=== PATIENT | male | born 1955 | race Caucasian/White ===

== ENCOUNTER 2016-09-01 17:10 | Emergency (ER) | payer OTHER ==
[2016-09-01 17:21] VITALS: RESP 16
--- NOTE | 2016-09-01 17:37 | EDPHY ---
H & P Stated Complaint: Lac on forehead Time Seen by Provider: 09/01/16 17:30 HPI/ROS: Chief Complaint: Forehead laceration HPI: The patient presents to the ED after he sustained a laceration to his forehead while playing tennis. The patient did not lose consciousness. The patient reports his tetanus shot is up-to-date. The patient denies any complaints of acute pain. REVIEW OF SYSTEMS: Neuro: no headache, numbness, weakness Musculoskeletal: as above Skin: As above Source: Patient Exam Limitations: No limitations - Personal History Current Tetanus/Diphtheria Vaccine: Unsure Current Tetanus Diphtheria and Acellular Pertussis (TDAP): Unsure - Medical/Surgical History Hx Asthma: No Hx Chronic Respiratory Disease: No Hx Diabetes: No Hx Cardiac Disease: No Hx Renal Disease: No Hx Cirrhosis: No Hx Alcoholism: No Hx HIV/AIDS: No Hx Splenectomy or Spleen Trauma: No Other PMH: High metabolism - Social History Smoking Status: Never smoked - Physical Exam Exam: General Appearance: Alert, no distress Head: 3 cm linear laceration on forehead Eyes: Pupils equal, round, reactive ENT, Mouth: No hemotympanum, no oral trauma Neck: Nontender, trachea midline Constitutional: Initial Vital Signs Temperature (C) 36.4 C 09/01/16 17:20 Heart Rate 72 09/01/16 17:20 Respiratory Rate 16 09/01/16 17:20 Blood Pressure 129/88 H 09/01/16 17:20 O2 Sat (%) 94 09/01/16 17:20 O2 Delivery Mode Room Air Allergies/Adverse Reactions: Penicillins Allergy (Verified 09/26/14 22:15) pentoxifylline [From Trental] Allergy (Verified 09/01/16 17:21) Home Medications: Medication Instructions Recorded Codeine Sulfate [CODEINE SULFATE] 30 - 60 mg PO BID PRN 09/10/14 Diltiazem Cd [Cardizem ER Q24hr] 120 mg PO DAILY #30 cap 09/11/14 Famotidine [Pepcid] 20 mg PO BID #15 tab 09/26/14 diphenhydrAMINE [Benadryl] 25 mg PO Q6 #15 tab 09/26/14 predniSONE [Prednisone] 20 mg PO DAILY #15 tablet 09/26/14 Medical Decision Making Procedures: Procedure: Laceration repair. Verbal consent was obtained from the patient. The a 3 cm laceration on the forehead was anesthetized using lidocaine with epinephrine. The wound was scrubbed, draped and explored to its base with a gloved finger. There were no deep structures involved. The wound was repaired with [phone]) 6-0 Ethilon sutures. The wound repair was simple. The procedure was performed by myself. Departure - Departure Disposition: Home, Routine, Self-Care Clinical Impression: Forehead laceration Condition: Good Instructions: Facial Laceration (ED) Additional Instructions: 1. Return to the emergency department in 5 days for suture removal. 2. Apply antibiotic ointment to suture line twice daily for next 5 days. Referrals: NONE *PRIMARY CARE P,. [Primary Care Provider] - As per Instructions
[2016-09-01 18:45] VITALS: BP 135/76; PULSE 81; TEMP 98.1; O2SAT 98
== END 2016-09-01 18:45 | disposition home or self-care (01) ==
PROC: 0HQ1XZZ Repair Face Skin, External Approach (ICD-10-PCS; principal; 2016-09-01)
DX: S01.81XA Laceration without foreign body of other part of head, initial encounter (principal); X58.XXXA Exposure to other specified factors, initial encounter; Y93.73 Activity, racquet and hand sports

== ENCOUNTER 2016-11-05 12:08 | Emergency (ER) | payer OTHER ==
[2016-11-05 12:14] VITALS: O2SAT 98
[2016-11-05] MEDS ORDERED: predniSONE 20 MG TAB PO ONE (12:58)
[2016-11-05] MEDS ORDERED: FAMOTIDINE 20 MG TAB PO ONE (12:58)
--- NOTE | 2016-11-05 12:59 | EDPHY ---
H & P Time Seen by Provider: 11/05/16 12:40 HPI/ROS: CHIEF COMPLAINT: Left index finger swelling HISTORY OF PRESENT ILLNESS: Stung by a yellow jacket days ago on his left index finger 8 presents with redness and swelling in the finger and the dorsum of the left hand and a single red streak going up his upper arm all of which is itchy and not painful. No fever. 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 The patient has swelling and redness of his left index finger and over the radial side of the dorsum of the left hand. There is a single red streak just proximal to his left a.c. on his arm. He does not have any tenderness over that red streak or over the dorsum of his hand or over the index finger. I can passively flex his index finger not completely because of spinning but not have pain with that. Emergency Department course/MDM: This patient presents with redness and itching but no pain or fever and no pain to palpation. Clinically I think it is much more likely he is having a severe local allergic reaction and I do not think it is likely he has abscess or tenosynovitis or cellulitis or deep space infection. The patient agrees, and thinks this is an allergic reaction and tells me that he does not think antibiotics are indicated. Antihistamines and steroids discussed and consented. Smoking Status: Never smoked Constitutional: Initial Vital Signs Temperature (C) 36.4 C 11/05/16 12:11 Heart Rate 42 L 11/05/16 12:11 Respiratory Rate 18 11/05/16 12:11 Blood Pressure 164/68 H 11/05/16 12:11 O2 Sat (%) 98 11/05/16 12:11 O2 Delivery Mode Room Air Allergies/Adverse Reactions: Penicillins Allergy (Verified 11/05/16 12:09) pentoxifylline [From Trental] Allergy (Verified 11/05/16 12:09) Home Medications: Medication Instructions Recorded Allopurinol 11/05/16 Famotidine [Pepcid] 20 mg PO BID #6 tab 11/05/16 predniSONE [prednisone 20mg (RX)] 40 mg PO DAILY 3 Days tab 11/05/16 MDM/Departure - MDM Medications Given: Discontinued Medications Famotidine (Pepcid) 40 mg PO EDNOW ONE Stop: 11/05/16 12:59 Last Admin: 11/05/16 13:15 Dose: 40 mg Prednisone (Prednisone) 60 mg PO EDNOW ONE Stop: 11/05/16 12:59 Last Admin: 11/05/16 13:15 Dose: 60 mg - Depart Disposition: Home, Routine, Self-Care Clinical Impression: Allergic reaction to insect sting Qualifiers: Encounter type: initial encounter Injury intent: undetermined intent Qualified Code(s): T63.484A - Toxic effect of venom of other arthropod, undetermined, initial encounter Condition: Good Instructions: Insect Bite or Sting (ED) Additional Instructions: Cold compresses 20 minutes at a time to the left index finger for the next 3 days. No ice. Return for worsening redness, or if you have pain or fever, or worsening swelling. Prescriptions: Famotidine [Pepcid] 20 mg PO BID #6 tab predniSONE [prednisone 20mg (RX)] 40 mg PO DAILY 3 Days tab Referrals: NONE *PRIMARY CARE P,. [Primary Care Provider] - 2-3 days, if not improved ( [facility])
[2016-11-05 13:25] VITALS: BP 145/72; PULSE 52; RESP 14; TEMP 97.7
== END 2016-11-05 13:25 | disposition home or self-care (01) ==
DX: T63.461A Toxic effect of venom of wasps, accidental (unintentional), initial encounter (principal)